=== PATIENT | male | born 1985 | race Caucasian/White ===

== ENCOUNTER 2016-10-27 20:53 | Emergency (ER) | payer OTHER ==
[~2016-10-27] VITALS: Ht 170.2 cm; Wt 91.6 kg
[2016-10-27 20:56] VITALS: TEMP 36.7; Ht 170.2 cm; Wt 91.6 kg
--- NOTE | 2016-10-27 22:25 | EMERGENCY ROOM VISIT NOTE ---
History Report prepared by Niyahibkaren: Jennifer Cobb Under the Supervision of: Dr. Pee Freeman D.O. First contact with patient: 22:16 Chief Complaint: ABDOMINAL PAIN Stated Complaint: STOMACH PAIN - FEVER Nursing Triage Summary: Pt c/o right sided abd pain x1 week but worse today c/o vomiting sometimes after eating History of Present Illness The patient is a 30 year old male who presents to the Emergency Room with complaints of persistent right sided abdominal pain for the past 1 week. He rates his discomfort as an 8/10. He complains of vomiting after eating intermittently. The patient reports he saw the [facility] earlier today, but his pain worsened this evening, so he decided to come to the ED. He admits to drinking alcohol daily, stating he drinks a glass or two of wine every day. The patient denies any history of liver problems. He does admit his urine has been "brownish yellow" recently and states he has been very thirsty so far today. The patient admits to a family history of cholelithiasis. 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 A total of 10 systems reviewed and were otherwise negative. 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 EYES: The conjunctivae are clear. The pupils are round and reactive. EARS, NOSE, MOUTH AND THROAT: The nose is without any evidence of any deformity. Mucous membranes are moist tongue is midline NECK: The neck is nontender and supple. RESPIRATORY: Normal respiratory effort is noted there is no evidence of wheezing rhonchi or rales CARDIOVASCULAR: Regular rate and rhythm noted there no murmurs rubs or gallops normal S1 normal S2 GASTROINTESTINAL: The abdomen is moderately distended and diffusely tender. Positive Martínez's sign. Lower abdomen tenderness as well, no guarding or rigidity. BACK: No midline tenderness or or step-off noted range of motion in flexion extension as well as rotation no signs of muscle spasm noted MUSCULOSKELETAL/EXTREMITIES: There is no evidence of gross deformity full range of motion is noted in the hips and shoulders SKIN: There is no obvious evidence of any rash. There are no petechiae, pallor or cyanosis noted. NEUROLOGIC: Patient is awake alert and oriented x3 Medical Decision & Procedures ER Provider Diagnostic Interpretation: Ultrasound of the right upper quadrant was obtained in the emergency department. The report was reviewed. Preliminary Findings Only See Final Report For Complete Findings US RUQ: Hepatomegaly. Hepatic steatosis suggested. No hepatic mass seen on concurrent CT. Gallbladder sludge without shadowing gallstones. Normal wall thickness of 2 mm. Gallbladder is elongated measuring 10 cm in length. Common bile duct measures 3 mm. Right kidney is unremarkable. Radiologist: Guillermo Grimaldo M.D. Study ready at 00:21 and initial results transmitted at 01:35 CT the abdomen and pelvis was obtained in the emergency department. The report was reviewed. 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 Further review shows prominent appendix measuring up to 15 mm with surrounding inflammation which is also concerning for appendicitis. Adjacent stranding and mesenteric adenopathy may be reactive. Terminal ileum wall also appears thickened which could be reactive also. No colitis, diverticulitis or bowel obstruction. Prominent gallbladder. No definite gallstones. Radiologist: Guillermo Grimaldo M.D. Study ready at 01:05 and initial results transmitted at 01:55 Clear Time Type Notes 10/28/16 01:46 Call Doctor Regarding Above results, called Dr. Freeman on 10/28 01 :44 (-04:00) 10/28/16 01:53 Call Doctor Regarding Appendicitis, called Dr. Freeman on 10/28 01: 52 (-04:00) SINGLE VIEW CHEST CLINICAL HISTORY: Generalized abdominal pain FINDINGS: An AP, portable, upright chest radiograph is obtained. No prior studies are available for comparison at the time of dictation. The examination is degraded by portable technique and patient rotation. The cardiomediastinal silhouette is unremarkable. There are low lung volumes with elevation of the right hemidiaphragm and bibasilar atelectasis. No airspace consolidation is seen typical for pneumonia and there is no large pleural effusion. No pneumothorax is seen. The bony thorax is grossly intact. IMPRESSION: Low lung volumes with bibasilar atelectasis.. Electronically signed by: Levon Barbosa M.D. 10/27/2016 11:07 PM Laboratory Results 10/27/16 22:15 Red Blood Count 4.82, Mean Corpuscular Volume 84.6, Mean Corpuscular Hemoglobin 31.5, Mean Corpuscular Hemoglobin Concent 37.3, Mean Platelet Volume 9.8 10/27/16 22:15 Test 10/27/16 22:15 10/27/16 22:25 10/27/16 22:35 White Blood Count 22.91 K/uL (4.8-10.8) Red Blood Count 4.82 M/uL (4.7-6.1) Hemoglobin 15.2 g/dL (14.0-18.0) Hematocrit 40.8 % (42-52) Mean Corpuscular Volume 84.6 fL (80-100) Mean Corpuscular Hemoglobin 31.5 pg (25-34) Mean Corpuscular Hemoglobin Concent 37.3 g/dl (32-36) Platelet Count 57 K/uL (130-400) Mean Platelet Volume 9.8 fL (7.4-10.4) RDW Standard Deviation 43.8 fL (36.4-46.3) RDW Coefficient of Variation 14.0 % (11.5-14.5) Neutrophils % (Manual) 90.5 % Lymphocytes % (Manual) 6.9 % Monocytes % (Manual) 1.7 % Myelocytes % 0.9 % Neutrophils # (Manual) 20.73 K/uL (1.4-6.5) Total Absolute Neutrophils 20.73 K/uL (1.4-6.5) Lymphocytes # (Manual) 1.58 K/uL (1.2-3.4) Total Absolute Lymphocytes 1.58 K/uL (1.2-3.4) Monocytes # (Manual) 0.39 K/uL (0.11-0.59) Myelocytes # 0.21 K/uL (0-0) Toxic Vacuolation 1+ Dohle Bodies 1+ Platelet Estimate DECREASED Anion Gap 12.0 mmol/L (3-11) Est Creatinine Clear Calc Drug Dose 125.0 ml/min Estimated GFR () 125.8 Estimated GFR (Non- 108.5 BUN/Creatinine Ratio 15.9 (10-20) Calcium Level 8.9 mg/dl (8.5-10.1) Total Bilirubin 6.7 mg/dl (0.2-1) Direct Bilirubin 5.3 mg/dl (0-0.2) Aspartate Amino Transf (AST/SGOT) 223 U/L (15-37) Alanine Aminotransferase (ALT/SGPT) 257 U/L (12-78) Alkaline Phosphatase 168 U/L (45-117) Total Protein 7.6 gm/dl (6.4-8.2) Albumin 2.6 gm/dl (3.4-5.0) Lipase 80 U/L (73-393) Prothrombin Time 13.3 SECONDS (9.0-12.0) Prothromb Time International Ratio 1.2 (0.9-1.1) Activated Partial Thromboplast Time 31.5 SECONDS (21.0-31.0) Partial Thromboplastin Ratio 1.2 Hepatitis B Surface Antigen NEG (NEG) Hepatitis C Antibody NEG (NEG) Urine Color ORANGE Urine Appearance SLIGHTLY CLOUDY (CLEAR) Urine pH (4.5-7.5) Urine Specific [place] 1.027 (1.000-1.030) Urine Protein (NEG) Urine Glucose (UA) (NEG) Urine Ketones (NEG) Urine Occult Blood (NEG) Urine Nitrite (NEG) Urine Bilirubin (NEG) Urine Urobilinogen (NEG) Urine Leukocyte Esterase (NEG) Urine RBC 5-10 /hpf (0-4) Urine WBC 1-5 /hpf (0-5) Urine Epithelial Cells 10-20 /lpf (0-5) Urine Bacteria NEG (NEG) Urine Hyaline Casts 1-5 /lpf (0-5) Laboratory results per my review. Medications Administered Medications (Trade) Dose Ordered Sig/Hiwot Route Start Time Stop Time Status Last Admin Dose Admin Sodium Chloride 1,000 ml @ 999 mls/hr Q1H1M STAT IV 10/27/16 22:27 10/27/16 23:27 DC 10/27/16 22:42 999 MLS/HR Ondansetron HCl (Zofran Inj) 4 mg NOW STAT IV 10/27/16 22:27 10/27/16 22:28 DC 10/27/16 22:40 4 MG Morphine Sulfate (MoRPHine SULFATE INJ) 4 mg Q15M PRN IV 10/27/16 22:30 11/10/16 22:29 10/28/16 02:55 4 MG Piperacillin Sod/ Tazobactam Sod (Zosyn Iv) 4.5 gm NOW STAT IV 10/27/16 23:21 10/27/16 23:22 DC 10/28/16 00:03 4.5 GM Sodium Chloride 1,000 ml @ 999 mls/hr Q1H1M STAT IV 10/28/16 00:27 10/28/16 01:27 DC 10/28/16 01:21 999 MLS/HR ED Course 2218: The patient was evaluated in room A4A. A complete history and physical examination were performed. 2227: Zofran 4 mg IV, NSS 1000 ml @ 999 mls/hr IV. 2230: Morphine Sulfate 4 mg IV. 2321: Zosyn 4.5 gm IV. 0027: NSS 1000 ml @ 999 mls/hr IV. 0158: I discussed the patients case with Dr. Madden, [facility] General Surgery. He recommends the patient be transferred to an acute care facility. 0230: I discussed the patients case with Dr. Nuñez, [facility] ED. He has accepted the patient via ground transfer. Medical Decision Prior records/ancillary studies reviewed. Triage Nursing notes reviewed. The patient's history was concerning for abdominal pain. Differential diagnosis: Etiologies such as appendicitis, diverticulitis, PUD, biliary pathology, UTI, pancreatitis, obstruction, mesenteric ischemia, aortic pathology, infections, inflammatory bowel disease, renal colic, as well as others were entertained. The patient is a 30-year-old male who presented to the emergency department for an evaluation of upper abdominal pain. The patient reported a fever over the last few days. He states his pain began approximate 6 days ago. The patient had a history and physical exam that appeared to be consistent with acute cholecystitis. Patient had right upper quadrant abdominal pain. His white blood cell count was significantly elevated. He also had elevations in his liver function studies. Patient was treated with IV fluids IV pain medicine and IV antiemetics. He was also started on IV antibiotics for presumed cholecystitis. The patient's ultrasound showed sludge in the gallbladder but no definite signs of cholecystitis. For this reason CT abdomen and pelvis was obtained to further evaluate the cause of the patient's presentation. The patient was found have what appeared to be stranding and inflammation in the right lower quadrant. This was felt to be secondary to acute appendicitis. 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 I discussed the patient's laboratory and radiographic studies with him. I also discussed his case with the on-call general surgeon as well as the on-call [facility] hospitalist group. It was felt that given the patient's history as well as thrombocytopenia that he may be better suited for a tertiary center because of his mixed presentation as well as his possible need for surgical intervention despite having thrombocytopenia and a thrombus in his superior mesenteric vein. I discussed his case with the emergency department at [facility]. They 've agreed to evaluate the patient in the emergency department for further management and disposition. The patient was transferred via ambulance. Transfer paperwork was written by myself. The patient was reevaluated multiple times. Medication Reconcilliation Current Medication List: was personally reviewed by me Blood Pressure Screening Patient's blood pressure: Low blood pressure Blood pressure disposition: Did not require urgent referral Consults Time Called: 0155 Consulting Physician: Dr. Madden, [facility] General Surgery Returned Call: 0158 I discussed the patients case with Dr. Madden, [facility] General Surgery. He recommends the patient be transferred to an acute care facility. Additional Consults: Time Called: 0225 Consulted Physician: Dr. Nuñez, [facility] ED Returned Call: 0230 Additional Comments: I discussed the patients case with Dr. Nuñez, [facility] ED. He has accepted the patient via ground transfer. Impression Primary Impression: Acute appendicitis Additional Impressions: SMV thrombus Hyperbilirubinemia Thrombocytopenia Right upper quadrant abdominal pain Scribe Attestation The scribe's documentation has been prepared under my direction and personally reviewed by me in its entirety. I confirm that the note above accurately reflects all work, treatment, procedures, and medical decision making performed by me. Departure Information Dispostion Transfer Acute Care Facility (This patient is being transferred via ground to [facility]) Referrals No Doctor, Assigned (PCP) Patient Instructions My [facility] Health Problem Qualifiers Primary Impression: Acute appendicitis Acute appendicitis type: unspecified acute appendicitis type Qualified Codes : K35.80 - Unspecified acute appendicitis
[2016-10-27] MEDS ORDERED: SODIUM CHLORIDE 0.9% 1000ML 1,000 ML IV STA (22:27)
[2016-10-27] MEDS ORDERED: ONDANSETRON INJ 2 MG/ML 2 ML VIAL IV STA (22:27)
[2016-10-27] MEDS: MoRPHine SULFATE 4 MG/ML 1 ML CARP\\VIAL IV PRN (22:40)
[2016-10-27] MEDS ORDERED: LEVO200T PO (22:52)
[2016-10-27 22:57] LABS: BUN/CREATININE RATIO 15.9 (10-20); CALCIUM 8.9 mg/dl (8.5-10.1); CREATININE 0.95 mg/dl (0.60-1.40); POTASSIUM 3.4 mmol/L (3.5-5.1)
[2016-10-27 23:01] LABS: HEMATOCRIT 40.8 % (42-52); MEAN CELL VOLUME 84.6 fL (80-100); MEAN CORPUSCULAR HEMOGLOBIN 31.5 pg (25-34); MEAN CORPUSCULAR HGB CONC 37.3 g/dl (32-36); MEAN PLATELET VOLUME 9.8 fL (7.4-10.4); PLATELET COUNT 57 K/uL (130-400); RED BLOOD COUNT 4.82 M/uL (4.7-6.1); WHITE BLOOD COUNT 22.91 K/uL (4.8-10.8)
[2016-10-27 23:03] LABS: COMPLETE YES; DOHLE BODIES 1+; LYMPH ABS # 1.58 K/uL (1.2-3.4); LYMPHOCYTE % 6.9 %; MYELOCYTE % 0.9 %; NEUTROPHILS % 90.5 %; PLT ESTIMATE DECREASED; VACUOLIZATION 1+
[2016-10-27 23:03] LABS: MANUAL MICROSCOPIC REQUIRED? YES; REVIEW REQ? NO; SULFASALICYLIC ACID POS (NEG); URINE APPEARANCE SLIGHTLY CLOUDY (CLEAR); URINE COLOR ORANGE; URINE SPECIFIC GRAVITY 1.027 (1.000-1.030)
[2016-10-27 23:09] LABS: URINE BACTERIA NEG (NEG)
--- NOTE | 2016-10-27 23:09 | DIAGNOSTIC IMAGING REPORT ---
SINGLE VIEW CHEST CLINICAL HISTORY: Generalized abdominal pain FINDINGS: An AP, portable, upright chest radiograph is obtained. No prior studies are available for comparison at the time of dictation. The examination is degraded by portable technique and patient rotation. The cardiomediastinal silhouette is unremarkable. There are low lung volumes with elevation of the right hemidiaphragm and bibasilar atelectasis. No airspace consolidation is seen typical for pneumonia and there is no large pleural effusion. No pneumothorax is seen. The bony thorax is grossly intact. IMPRESSION: Low lung volumes with bibasilar atelectasis.. Electronically signed by: Levon Barbosa M.D. 10/27/2016 11:07 PM Dictated Date/Time: 10/27/2016 11:07 PM
[2016-10-27] MEDS ORDERED: PIPERACILLIN/TAZOBACTAM 4.5 GM/100ML D5W IV STA (23:21)
[2016-10-28] MEDS ORDERED: SODIUM CHLORIDE 0.9% 1000ML 1,000 ML IV STA (00:27)
[2016-10-28] MEDS ORDERED: OPTIRAY 320 IV PRN (00:30)
[2016-10-28] MEDS: MoRPHine SULFATE 4 MG/ML 1 ML CARP\\VIAL IV PRN (02:55)
[2016-10-28 02:57] VITALS: BP 101/59; PULSE 90; O2SAT 96
[2016-10-28 03:15] LABS: INR 1.2 (0.9-1.1); PARTIAL THROMBOPLASTIN RATIO 1.2; PROTHROMBIN TIME (PATIENT) 13.3 SECONDS (9.0-12.0)
--- NOTE | 2016-10-28 06:54 | DIAGNOSTIC IMAGING REPORT ---
ABD/PELVIS IV CONTRAST ONLY CT DOSE: 611.68 mGy.cm HISTORY: Pain right sided pain, elevated WBC count TECHNIQUE: Multiaxial CT images of the abdomen and pelvis were performed following the use of intravenous contrast. A dose lowering technique was utilized adhering to the principles of ALARA. COMPARISON STUDY: None. FINDINGS: Lung bases are clear. Minimal dependent bibasilar atelectatic change. Liver is uniform. Subtle wall edematous change of the gallbladder. Trace gallbladder sludge. The pancreas is uniform. Spleen is unremarkable. There are findings of focal superior mesenteric venous thrombosis transaxial image 49. Kidneys enhance uniformly. Bowel pattern overall is nonobstructive. There are findings consistent with a moderately thickened appendix at 10 mm. Mild periappendiceal fat stranding is present. Several small regional reactive nodes are noted. There is no evidence for abscess collection or obstructive change. The bladder is midline. IMPRESSION: 1. Acute appendicitis. 2. Moderate periappendiceal fat stranding with no evidence for abscess collection or obstructive change. 3. Focal thrombus within the superior mesenteric vein. 4. Slightly edematous wall of the gallbladder with a small amount of sludge The above report was generated using voice recognition software. It may contain grammatical, syntax or spelling errors. Electronically signed by: Andrzej Rivas M.D. 10/28/2016 6:53 AM Dictated Date/Time: 10/28/2016 6:49 AM
--- NOTE | 2016-10-28 07:00 | DIAGNOSTIC IMAGING REPORT ---
GALLBLADDER-ABD LIMITED HISTORY: 30 years-old Male acute right upper quadrant abdominal pain COMPARISON: CT study 10/28/2016 TECHNIQUE: Multiple real-time sonographic images of the abdominal right upper quadrant were obtained assessing grayscale appearance and color flow. FINDINGS: Image pancreas is unremarkable with distal body and tail obscured by bowel gas. There is increased echogenicity with poor through transmission of the hepatic parenchyma which measures up to 19.8 cm compatible with fatty infiltration. Ill-defined area of hepatic parenchymal low attenuation near the isabel hepatis, 1.7 x 1.0 x 0.9 cm suggests fatty sparing. No focal mass is seen on comparison CT. There is mild degree of layering sludge without shadowing cholelithiasis. Gallbladder is mildly collapsed without wall thickening or pericholecystic fluid collection. No common bile duct dilation. Common bile duct measures 2.9 mm. Right kidney appears unremarkable without hydronephrosis. IMPRESSION: 1. Mild gallbladder sludge without cholelithiasis or sonographic evidence of acute cholecystitis. 2. No biliary ductal dilatation. 3. Fatty infiltration of the liver. The above report was generated using voice recognition software. It may contain grammatical, syntax or spelling errors. Electronically signed by: Taz Calvillo M.D. 10/28/2016 6:59 AM Dictated Date/Time: 10/28/2016 6:56 AM
[2016-10-28] MEDS ORDERED: MoRPHine SULFATE 10 MG/ML CARP/VIAL ONE (07:10)
[2016-11-24] MEDS ORDERED: WARF7.5T4 PO (11:22)
[2016-11-24] MEDS ORDERED: ENOX80IN SQ (11:22)
[2016-11-24] MEDS ORDERED: FERR50TA3 (11:22)
[2016-11-24] MEDS ORDERED: PROB1TAB16 (11:22)
[2016-11-24] MEDS ORDERED: LEVO-18 PO (11:22)
[2016-11-24] MEDS ORDERED: WARF6TAB PO (11:22)
[2016-11-24] MEDS ORDERED: METR500T PO (11:22)
[2017-01-01] MEDS ORDERED: WARF5TAB7 PO (11:26)
== END 2016-10-28 03:15 | disposition short-term general hospital (02) ==
LOC: C.EDB 20:54 → C.EDA 10-28 03:15
DX: K35.80 Unspecified acute appendicitis (principal); K55.069 Acute infarction of intestine, part and extent unspecified; Z79.899 Other long term (current) drug therapy; D69.6 Thrombocytopenia, unspecified

== ENCOUNTER → 2016-11-10 | Outpatient (CLI) | payer OTHER ==
[~2016-11-10] MED LIST: ENOX80IN SQ; FERR50TA3; LEVO-18 PO; LEVO200T PO; METR500T PO; PROB1TAB16; WARF5TAB7 PO; WARF6TAB PO; WARF7.5T4 PO
[2016-11-10 14:34] LABS: BASO % 0.5 %; BASO ABS # 0.04 K/uL (0-0.2); EOS % 1.5 %; HEMATOCRIT 27.1 % (42-52); IG% 0.6 %; LYMPH % 29.3 %; LYMPH ABS # 2.42 K/uL (1.2-3.4); MEAN CELL VOLUME 95.1 fL (80-100); MEAN CORPUSCULAR HEMOGLOBIN 31.2 pg (25-34); MEAN CORPUSCULAR HGB CONC 32.8 g/dl (32-36); MEAN PLATELET VOLUME 8.3 fL (7.4-10.4); MONO % 7.3 %; NEUT % 60.8 %; PLATELET COUNT 873 K/uL (130-400); RED BLOOD COUNT 2.85 M/uL (4.7-6.1); WHITE BLOOD COUNT 8.25 K/uL (4.8-10.8)
[2016-11-10 14:41] LABS: INR 1.6 (0.9-1.1); PROTHROMBIN TIME (PATIENT) 17.7 SECONDS (9.0-12.0)
[2016-11-10 14:45] LABS: BLOOD UREA NITROGEN 8 mg/dl (7-18); BUN/CREATININE RATIO 11.1 (10-20); CARBON DIOXIDE 27 mmol/L (21-32); CHLORIDE 104 mmol/L (98-107); CREATININE 0.75 mg/dl (0.60-1.40); GLUCOSE 113 mg/dl (70-99); POTASSIUM 3.9 mmol/L (3.5-5.1); SODIUM 137 mmol/L (136-145)
[2016-11-10 15:29] LABS: COMPLETE YES; POLYCHROMASIA 1+
== END | disposition home or self-care (01) ==
LOC: C.LABSPEC 13:47
PROVIDERS: ATTEND Surgery
DX: Z51.81 Encounter for therapeutic drug level monitoring (principal); Z79.01 Long term (current) use of anticoagulants; Z79.2 Long term (current) use of antibiotics

== ENCOUNTER → 2016-11-17 | Outpatient (CLI) | payer OTHER ==
[2016-11-17 10:36] LABS: BASO % 0.2 %; BASO ABS # 0.01 K/uL (0-0.2); COMPLETE YES; EOS % 1.7 %; HEMATOCRIT 34.7 % (42-52); LYMPH % 30.8 %; LYMPH ABS # 1.67 K/uL (1.2-3.4); MEAN CELL VOLUME 94.6 fL (80-100); MEAN CORPUSCULAR HEMOGLOBIN 30.2 pg (25-34); MEAN PLATELET VOLUME 8.4 fL (7.4-10.4); MONO % 6.3 %; PLATELET COUNT 472 K/uL (130-400); RED BLOOD COUNT 3.67 M/uL (4.7-6.1); WHITE BLOOD COUNT 5.43 K/uL (4.8-10.8)
[2016-11-17 10:51] LABS: BLOOD UREA NITROGEN 10 mg/dl (7-18); BUN/CREATININE RATIO 11.9 (10-20); C-REACTIVE PROTEIN 0.32 mg/dl (0-0.29); CALCIUM 8.9 mg/dl (8.5-10.1); CARBON DIOXIDE 26 mmol/L (21-32); CHLORIDE 106 mmol/L (98-107); CREATININE 0.86 mg/dl (0.60-1.40); GLUCOSE 132 mg/dl (70-99); POTASSIUM 3.7 mmol/L (3.5-5.1); SODIUM 138 mmol/L (136-145)
== END | disposition home or self-care (01) ==
LOC: C.LABSPEC 09:58
PROVIDERS: ATTEND Internal Medicine Infectious Disease
DX: Z79.2 Long term (current) use of antibiotics (principal)

== ENCOUNTER → 2016-11-22 | Outpatient (CLI) | payer OTHER ==
[2016-11-22 11:53] LABS: INR 1.7 (0.9-1.1); PROTHROMBIN TIME (PATIENT) 18.9 SECONDS (9.0-12.0)
== END | disposition home or self-care (01) ==
LOC: C.LAB 11:29
PROVIDERS: ATTEND Family Medicine
DX: I26.90 Septic pulmonary embolism without acute cor pulmonale (principal); I80.9 Phlebitis and thrombophlebitis of unspecified site

== ENCOUNTER → 2017-01-26 | Outpatient (CLI) | payer OTHER ==
[~2017-01-26] MED LIST changes: -ENOX80IN SQ; -LEVO-18 PO; -METR500T PO; +VTME100 PO; -WARF6TAB PO
--- NOTE | 2017-01-26 08:57 | DIAGNOSTIC IMAGING REPORT ---
DUPLEX PORTAL HEPATIC VEINS CLINICAL HISTORY: PORTAL VEIN THROMBOSIS pain TECHNIQUE: Doppler ultrasound COMPARISON STUDY: CT 10/28/2016 FINDINGS: All major venous structures of the abdomen appear intact. Venous flow is antegrade. There is no evidence for venous thrombosis. IMPRESSION: Normal study The above report was generated using voice recognition software. It may contain grammatical, syntax or spelling errors. Electronically signed by: Andrzej Rivas M.D. 01/26/2017 8:56 AM Dictated Date/Time: 01/26/2017 8:55 AM
== END | disposition home or self-care (01) ==
LOC: C.ULTR 08:29
PROVIDERS: ATTEND Family Medicine
DX: I81 Portal vein thrombosis (principal)